=== PATIENT | female | born 2000 | race Two or more races ===

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

== ENCOUNTER 2022-11-17 22:14 | Outpatient (CLI) | payer BC ==
--- NOTE | 2022-11-18 08:22 | Ultrasound Report ---
PROCEDURE: OB First Trimester w/TV INDICATIONS: POSITIVE TEST OUTSIDE/PRIOR DATING DATA: Last menstrual period (LMP): 09/19/2022. LMP-based estimated date of delivery (KYRA): 06/26/2023. First dating scan (date and location): Today 11/17/2022. Estimated date of delivery (KYRA) from first dating scan: 06/25/2023. TECHNIQUE: Real-time scanning was performed of the fetus and maternal pelvic organs, with image documentation. Endovaginal scanning was also performed to better visualize the fetus and maternal ovaries. COMPARISON: None relevant FINDINGS: Heart rate 176 bpm. Cervix appears closed. Mean gestational sac diameter is 3.57 cm. [place] -rump length is 1.96 cm. Estimated ultrasound age is 8 weeks and 4 days. There is a right corpus lute um. Yolk sac is visible. Small perigestational hemorrhage measuring 1.9 x 2.2 x 1.3 cm. IMPRESSION: Living intrauterine gestation at 8 weeks and 4 days of ultrasound age, concordant with reported LMP. Reviewed by: Maximus Perez MD on 11/18/2022 8:20 AM PDT Approved by: Maximus Perez MD on 11/18/2022 8:20 AM PDT Station ID: [id number]
== END 2022-11-17 22:15 | disposition home or self-care (01) ==
LOC: DI 22:14
PROVIDERS: ATTEND Obstetrics & Gynecology
DX: Z34.01 Encounter for supervision of normal first pregnancy, first trimester (principal)

== ENCOUNTER 2022-12-05 15:21 | Outpatient (CLI) | payer BC ==
[2022-12-05 15:57] LABS: BASOPHILS % (AUTO) 0.3 %; EOSINOPHILS # (AUTO) 0.1 10^3/uL (0.0-0.7); HCT - HEMATOCRIT 40.6 % (37.0-47.0); HGB - HEMOGLOBIN 13.6 g/dL (12.0-16.0); LYMPHOCYTES # (AUTO) 2.5 10^3/uL (1.5-3.5); LYMPHOCYTES % (AUTO) 24.5 %; MEAN CORPUSCULAR HEMOGLOBIN 29.3 pg (27.0-31.0); MEAN CORPUSCULAR HGB CONC 33.5 g/dL (32.0-36.0); MEAN CORPUSCULAR VOLUME 87.5 fL (81.0-99.0); MEAN PLATELET VOLUME 10.4 fL (7.9-10.8); MONOCYTES # (AUTO) 0.7 10^3/uL (0.0-1.0); MONOCYTES % (AUTO) 6.6 %; NEUTROPHILS # (AUTO) 6.7 10^3/uL (1.5-6.6); NEUTROPHILS % (AUTO) 67.1 %; PLT - PLATELET COUNT 257 10^3/uL (130-450); RED BLOOD COUNT 4.64 10^6/uL (4.20-5.40); RED CELL DISTRIBUTION WIDTH 12.1 % (12.0-15.0)
[2022-12-05 21:39] LABS: CHLAMYDIA TRACHOMATIS DNA NEGATIVE (NEGATIVE); NEISSERIA GONORRHOEAE DNA NEGATIVE (NEGATIVE); TRICHOMONAS VAGINALIS DNA NEGATIVE (NEGATIVE)
[2022-12-06 02:07] LABS: HIV SCREEN 4TH GENERATION Non Reactive (Non Reactive)
[2022-12-06 06:10] LABS: HBsAG SCREEN Negative (Negative); HCV AB Non Reactive (Non Reactive)
[2022-12-06 07:09] LABS: RPR Non Reactive (Non Reactive)
[2022-12-06 09:09] LABS: VARICELLA-ZOSTER AB IGG <135 index (Immune >165)
== END 2022-12-05 15:22 | disposition home or self-care (01) ==
LOC: LAB 15:21
PROVIDERS: ATTEND Nurse Practitioner
DX: Z34.00 Encounter for supervision of normal first pregnancy, unspecified trimester (principal); Z36.89 Encounter for other specified antenatal screening
CPT/HCPCS: 36415; 85025; 86592; 86762; 86787; 86803; 86850; 86900; 86901; 87340; 87389; 87491; 87591; 87661

== ENCOUNTER 2023-01-12 10:32 | Outpatient (CLI) | payer BC ==
[2023-01-14 19:07] LABS: AFP MOM 1.04 (.); AFP VALUE 36.7 ng/mL (.); DIA MOM 0.94 (.); DIA VALUE 139.42 pg/mL (.); DSR (BY AGE) 1 IN 1081 (.); DSR (SECOND TRIMESTER) 1 IN 10000 (.); GEST. AGE ON COLLECTION DATE 16.4 WEEKS (.); GESTAT. AGE METHOD EDD (.); HCG MOM 2.07 (.); HCG VALUE 77924 mIU/mL (.); INSULIN DEP DIABETES No (.); MATERNAL AGE AT EDD 23.7 yr (.); MULTIPLE GESTATION No (.); OPEN SPINA BIFIDA RISK 1 IN 10000 (.); RACE Other (.); RESULTS Report (.); TEST RESULTS *Screen Negative* (.); TRISOMY 18 RISK Not increased (.); UE3 MOM 1.46 (.); UE3 VALUE 1.47 ng/mL (.); WEIGHT 157 lbs (.)
== END 2023-01-12 10:33 | disposition home or self-care (01) ==
LOC: LAB 10:32
PROVIDERS: ATTEND Obstetrics & Gynecology
DX: Z34.00 Encounter for supervision of normal first pregnancy, unspecified trimester (principal)
CPT/HCPCS: 36415; 81511

== ENCOUNTER 2023-02-25 19:12 | Outpatient (CLI) | payer OTHER ==
--- NOTE | 2023-02-26 12:39 | Ultrasound Report ---
PROCEDURE: OB F/U or Repeat INDICATIONS: FU TO FAS, SUPERVISION OF NORMAL OUTSIDE/PRIOR DATING DATA: Last menstrual period (LMP): 09/19/2022. LMP-based estimated date of delivery (KYRA): 06/26/2023. First dating scan (date and location): 11/17/2022. Estimated date of delivery (KYRA) from first dating scan: 06/25/2023. The below data below was generated using the working KYRA of 06/25/2023 TECHNIQUE: Real-time scanning was performed of the fetus, with image documentation and biometric measurements. Endovaginal scanning: Not performed. COMPARISON: 02/06/2023 FINDINGS: General: A single living intrauterine gestation is present. Presentation: Breech Placenta: Placental position is anterior, without previa. Amniotic fluid index: 25.1 cm, 99.2% for gestational age. heart rate: 153 beats per minute. Maternal cervical canal: 3.1 cm long; normal length is 2.5 cm or more. Facial profile and right ventricular outflow tract appear to be within normal limits IMPRESSION: Single live intrauterine consistent with 20 week 6 day gestation. Polyhydramnios. Amniotic fluid index is 99.2 percentile given age. Facial profile and right ventricular outflow tract within normal limits Reviewed by: Guicho Rosenberg MD on 02/26/2023 11:38 AM NIKA Approved by: Guicho Rosenberg MD on 02/26/2023 11:38 AM NIKA Station ID: [id number]
== END 2023-02-25 19:13 | disposition home or self-care (01) ==
LOC: DI 19:12
PROVIDERS: ATTEND Obstetrics & Gynecology
DX: O40.2XX0 Polyhydramnios, second trimester, not applicable or unspecified (principal)

== ENCOUNTER 2023-03-09 10:12 | Outpatient (CLI) | payer OTHER ==
[2023-03-09 11:24] LABS: HCT - HEMATOCRIT 32.1 % (37.0-47.0); HGB - HEMOGLOBIN 10.4 g/dL (12.0-16.0); MEAN CORPUSCULAR HEMOGLOBIN 28.8 pg (27.0-31.0); MEAN CORPUSCULAR HGB CONC 32.4 g/dL (32.0-36.0); MEAN CORPUSCULAR VOLUME 88.9 fL (81.0-99.0); RED BLOOD COUNT 3.61 10^6/uL (4.20-5.40); RED CELL DISTRIBUTION WIDTH 11.5 % (12.0-15.0); WHITE BLOOD COUNT 10.2 x10^3/uL (4.8-10.8)
[2023-03-09 11:41] LABS: ALBUMIN 3.4 g/dL (3.2-5.5); ALBUMIN/GLOBULIN RATIO 1.2 (1.0-2.2); BILIRUBIN,TOTAL 0.2 mg/dL (0.2-1.0); CREATININE 0.4 mg/dL (0.6-1.3); POTASSIUM 3.3 mmol/L (3.5-4.5); TOTAL PROTEIN 6.2 g/dL (6.4-8.9); URIC ACID 2.6 mg/dL (2.3-6.6)
[2023-03-09 11:43] LABS: CREATININE,URINE 51.7 mg/dL; PROTEIN/CREATININE RATIO,URINE 0.2 (<=0.2)
[2023-03-09 13:26] LABS: ESTIMATED AVERAGE GLUCOSE 91 mg/dL (70-100); HEMOGLOBIN A1c% 4.8 % (4.27-6.07)
== END 2023-03-09 10:13 | disposition home or self-care (01) ==
LOC: LAB 10:12
PROVIDERS: ATTEND Nurse Practitioner
DX: O26.02 Excessive weight gain in pregnancy, second trimester (principal); Z36.89 Encounter for other specified antenatal screening
CPT/HCPCS: 36415; 80053; 82570; 82950; 83036; 84156; 84550; 85027